=== PATIENT | male | born 1970 ===

== ENCOUNTER 2017-08-12 22:03 | Emergency (ER) | payer SELFPAY ==
[2017-08-12 22:17] VITALS: BMI 26.6
--- NOTE | 2017-08-12 22:22 | ED PDOC ---
Arrival/HPI - General Historian: Patient - General Time Seen by Provider: 08/12/17 22:13 - History of Present Illness Narrative History of Present Illness (Text): 08/12/17 22:20 46yo male with no past medical history bib EMS for facial laceration. EPR the RN , EMS states patient was picked up from the street, after a fall. Patient appear intoxicated in emergency department and admitted drinking alcohol. He however denies headache, chest pain, focal weakness, LOC, visual changes, dizziness, any other complaint. (Delvis Alejandra A) Past Medical History - Provider Review Nursing Documentation Reviewed: Yes Family/Social History - Physician Review Nursing Documentation Reviewed: Yes Family/Social History: Unknown Family HX Allergies/Home Meds Allergies/Adverse Reactions: Allergies No Known Allergies Allergy (Verified 08/12/17 22:18) Review of Systems - Physician Review All systems were reviewed & negative as marked: Yes - Review of Systems Constitutional: Normal Eyes: Normal ENT: Normal Respiratory: Normal Cardiovascular: Normal Gastrointestinal: Normal Genitourinary Male: Normal Musculoskeletal: Normal Skin: Laceration Neurological: Normal Endocrine: Normal Hemo/Lymphatic: Normal Psychiatric: Normal Physical Exam Vital Signs Reviewed: Yes Temperature: Afebrile Blood Pressure: Normal Pulse: Regular Respiratory Rate: Normal Appearance: Positive for: Well-Appearing, Non-Toxic, Comfortable, Other ( Alcohol breathe) Pain Distress: None Mental Status: Positive for: Alert and Oriented X 3 - Systems Exam Head: Present: Atraumatic, Normocephalic Pupils: Present: PERRL Extroacular Muscles: Present: EOMI Conjunctiva: Present: Normal Mouth: Present: Moist Mucous Membranes Neck: Present: Normal Range of Motion Respiratory/Chest: Present: Clear to Auscultation, Good Air Exchange. No: Respiratory Distress, Accessory Muscle Use Cardiovascular: Present: Regular Rate and Rhythm, Normal S1, S2. No: Murmurs Abdomen: No: Tenderness, Distention, Peritoneal Signs Back: Present: Normal Inspection Upper Extremity: Present: Normal Inspection. No: Cyanosis, Edema Lower Extremity: Present: Normal Inspection. No: Edema Neurological: Present: GCS=15, CN II-XII Intact, Speech Normal, Motor Func Grossly Intact, Normal Sensory Function, Normal Cerebellar Funct, Gait Normal Skin: Present: Warm, Dry, Normal Color, Laceration (1.0cm linear laceration to left sided chin area), Abrasion (Noted to left forehead and nasal bridge). No: Rashes Psychiatric: Present: Alert, Oriented x 3, Normal Insight, Normal Concentration Vital Signs Temp Pulse Resp BP Pulse Ox 08/13/17 06:36 98.3 F 81 18 120/73 98 08/13/17 06:31 98.3 F 81 18 120/73 98 08/13/17 00:39 76 20 98 08/12/17 22:20 97.8 F 74 20 141/97 H 100 08/12/17 22:12 97.4 F L 70 18 141/97 H 100 Medical Decision Making ED Course and Treatment: 08/13/17 06:04 Pt awake, alert, ambulating with steady gait. Pt in no acute distress, clinically sober. Pt stable for d/c. (Fernando Verduzco) 08/13/17 01:58 PT in emergency department for stated history. Wound was irrigated. Laceration approximated with both steri strip and dermabond. abrasion irrigated and bacitracine applied. He was placed on prophylactic abx and TD booster updated Head CT FINDINGS: Brain: Mild cerebral and cerebellar volume loss. Minimal hypodensity is seen in the periventricular cerebral white matter. No hemorrhage. Ventricles: Unremarkable. No ventriculomegaly. Bones/joints: Unremarkable. No acute fracture. Soft tissues: Frontal and left frontal scalp hematoma. Sinuses: Unremarkable. No acute sinusitis. Mastoid air cells: Opacification of left mastoid air cells. Left veronica mastoid disease. Orbits: The globe and lens are intact. IMPRESSION: 1. Frontal and left frontal scalp hematoma. 2. No evidence of an acute intracranial hemorrhage, midline shift or mass effect is identified PT was observed in emergency department endorsed to Dr. Verduzco to evaluate and dispo pt (Delvis Alejandra) - RAD Interpretation Radiology Orders: 08/12/17 22:18 HEAD W/O CONTRAST [CT] Stat - Medication Orders Current Medication Orders: Discontinued Medications Cephalexin Monohydrate (Keflex) 500 mg PO STAT STA PRN Reason: Protocol Stop: 08/13/17 01:59 Tetanus/Reduced Diphtheria/Acell Pertussis (Boostrix Vaccine Inj) 0.5 ml IM .ONCE ONE Stop: 08/13/17 01:58 Procedure: Wound Repair - Consent Obtained Consent obtained: Verbal - Performed by Performed by: Mid-level Provider - Indications Indication(s):: Laceration - Location Location:: Chin Shape:: Linear Dimensions Length cm: 1.0 - Debris Debris:: None - Irrigated Irrigated with ml of normal saline: 50 - Complexity Complexity:: Intermediate (2 layer) - Wound repair method [place]:: Tissue glue, Steri-strips - Muscle repiar layer closed with Muscle repair layer closed with:: Wound well approximated, Tetanus ordered Disposition/Present on Arrival - Present on Arrival Any Indicators Present on Arrival: No History of DVT/PE: No History of Uncontrolled Diabetes: No Urinary Catheter: No History of Decub. Ulcer: No History Surgical Site Infection Following: None - Disposition Have Diagnosis and Disposition been Completed?: Yes Disposition Time: 06:20 Patient Plan: Discharge - Disposition Diagnosis: Facial laceration, Abrasion, Alcohol abuse Disposition: HOME/ ROUTINE Condition: STABLE Discharge Instructions (ExitCare): Laceration Repair With Glue (DC) Additional Instructions: Keep wound clean and dry Follow up with your doctor Return to emergency department for any new or worsening symptoms Prescriptions: Cephalexin [cephalexin] 500 mg PO TID #21 cap Referrals: [facility] [place] [Outside] - Follow up with primary Forms: [email or web address] ([place])
[2017-08-13] MEDS ORDERED: TDAP Vaccine 0.5 mL Syr IM ONE (01:57)
[2017-08-13 05:40] VITALS: O2SAT 98
[2017-08-13 06:32] VITALS: BP 120/73; PULSE 81; RESP 18; TEMP 98.3
--- NOTE | 2017-08-13 09:57 | CT ---
PROCEDURE: CT HEAD WITHOUT CONTRAST. HISTORY: s/p trauma COMPARISON: None available. TECHNIQUE: Axial computed tomography images were obtained through the head/brain without intravenous contrast. Radiation dose: Total exam DLP = mGy-cm. This CT exam was performed using one or more of the following dose reduction techniques: Automated exposure control, adjustment of the mA and/or kV according to patient size, and/or use of iterative reconstruction technique. FINDINGS: HEMORRHAGE: No intracranial hemorrhage. BRAIN: No mass effect or edema. No atrophy or chronic microvascular ischemic changes. VENTRICLES: Unremarkable. No hydrocephalus. CALVARIUM: Unremarkable. PARANASAL SINUSES: Unremarkable as visualized. No significant inflammatory changes. MASTOID AIR CELLS: Unremarkable as visualized. No inflammatory changes. OTHER FINDINGS: None. IMPRESSION: Normal CT of the Head.
== END 2017-08-13 06:29 | disposition home or self-care (01) ==
LOC: ED 22:03
DX: S01.81XA Laceration without foreign body of other part of head, initial encounter (principal); W19.XXXA Unspecified fall, initial encounter; F10.10 Alcohol abuse, uncomplicated